=== PATIENT | male | born 1990 | race Caucasian/White ===

== ENCOUNTER 2019-06-04 15:37 | Outpatient (CLI) | payer MEDICAID, OTHER | END 2019-06-04 23:59 | disposition home or self-care (01) | LOC: CVU 15:37 | PROVIDERS: ATTEND Internal Medicine Cardiovascular Disease | DX: I08.8 Other rheumatic multiple valve diseases (principal); I42.9 Cardiomyopathy, unspecified | CPT/HCPCS: 0399T; 93306 ==

== ENCOUNTER → 2020-09-04 | Outpatient (CLI) | payer MEDICAID | END | disposition home or self-care (01) | LOC: CFH 14:47 | PROVIDERS: ATTEND Registered Nurse | DX: I10 Essential (primary) hypertension (principal); I42.9 Cardiomyopathy, unspecified | CPT/HCPCS: 93306 ==